=== PATIENT | female | born 1965 | race Two or more races ===

== ENCOUNTER 2017-06-12 14:13 | Emergency (ER) | payer OTHER | END 2017-06-12 15:54 | disposition home or self-care (01) | LOC: ER 14:13 | DX: S82.001A Unspecified fracture of right patella, initial encounter for closed fracture (principal); W01.0XXA Fall on same level from slipping, tripping and stumbling without subsequent striking against object, initial encounter; Y99.0 Civilian activity done for income or pay; Y99.8 Other external cause status; Y92.89 Other specified places as the place of occurrence of the external cause | CPT/HCPCS: 29505; 73564; 99284-25 ==